=== PATIENT | male | born 1985 | race Caucasian/White ===

== ENCOUNTER 2021-06-25 13:08 | Emergency (ER) | payer BC, OTHER ==
--- NOTE | 2021-06-25 13:55 | EDM.PDOC ---
ED HPI GENERAL MEDICAL PROBLEM - General Chief Complaint: Lower Extremity Injury/Pain Stated Complaint: LEFT LEG IS SORE AND MAYVE SOME INFECTION Time Seen by Provider: 06/25/21 13:40 Source of Information: Reports: Patient, Old Records. Denies: RN History Limitations: Reports: No Limitations - History of Present Illness INITIAL COMMENTS - FREE TEXT/NARRATIVE: 35 yo male here with L proximal/medial thigh puffiness. He feels it is puffy in both legs, but worse on the L. He denies injury. Really doesn't have pain. Has not been seen in the clinic for this. Sx's ongoing for approx 9 days. No SOB. Nothing he does makes it hurt. He looked on a computer and got concerned that maybe he had a blood clot. No swelling to the lower leg. Onset: Unknown/Unsure Duration: Day(s): (~9), Constant Location: Reports: Lower Extremity, Left Quality: Reports: Other (no pain) Improves with: Reports: None Worsens with: Reports: None Context: Reports: Other (See HPI) Associated Symptoms: Reports: No Other Symptoms Treatments [employer]ACH: Reports: Other (see below) (none) - Related Data Allergies Allergy/AdvReac Type Severity Reaction Status Date / Time No Known Allergies Allergy Verified 06/25/21 13:35 Home Meds: Home Meds NK [No Known Home Meds] 06/25/21 [History] Past Medical History - Infectious Disease History Infectious Disease History: Reports: Chicken Pox Social & Family History - Tobacco Use Tobacco Use Status *Q: Never Tobacco User - Caffeine Use Caffeine Use: Reports: Coffee, Soda - Recreational Drug Use Recreational Drug Use: No Review of Systems - Review of Systems Review Of Systems: See Below Constitutional: Reports: No Symptoms Musculoskeletal: Reports: Other (puffiness to the prox/medial L thigh) Skin: Reports: No Symptoms. Denies: Diaphoresis, Bruising, Pruritis, Erythema Neurological: Reports: No Symptoms ED EXAM, GENERAL - Physical Exam Exam: See Below Exam Limited By: No Limitations General Appearance: Alert, WD/WN, No Apparent Distress Respiratory/Chest: No Respiratory Distress, Lungs Clear, Normal Breath Sounds, No Accessory Muscle Use Cardiovascular: Regular Rate, Rhythm, No Edema Extremities: Normal Inspection, Normal Range of Motion, Non-Tender, No Pedal Edema, Other (seems to have some fatty tissue present to both LE's/medial/prox thigh). No: Pedal Edema, Joint Swelling, Leg Pain, Limited Range of Motion, Increased Warmth, Redness Neurological: Alert, Oriented, CN II-XII Intact, Normal Cognition, No Motor/Sensory Deficits Psychiatric: Normal Affect, Normal Mood Skin Exam: Warm, Dry, Intact, Normal Color, No Rash Course - Vital Signs Last Recorded V/S: Last Vital Signs Temp 36.4 C 06/25/21 13:49 Pulse 74 06/25/21 13:49 Resp 15 06/25/21 13:49 BP 150/94 H 06/25/21 13:49 Pulse Ox 97 06/25/21 13:49 - Orders/Labs/Meds Labs: Laboratory Tests 06/25/21 Range/Units 13:58 D-Dimer, Quantitative 232.55 (0.0-500.0) ng/mL Departure - Departure Time of Disposition: 14:45 Disposition: Home, Self-Care 01 Condition: Good Clinical Impression: Swelling of thigh - Discharge Information *PRESCRIPTION DRUG MONITORING PROGRAM REVIEWED*: Not Applicable *COPY OF PRESCRIPTION DRUG MONITORING REPORT IN PATIENT SORAYA: Not Applicable Referrals: PCP,None [Primary Care Provider] - Forms: ED Department Discharge Additional Instructions: F/U with your provider if things worsen. Sepsis Event Note (ED) - Evaluation Sepsis Screening Result: No Definite Risk - Focused Exam Vital Signs: Vital Signs Temp Pulse Resp BP Pulse Ox 06/25/21 13:49 36.4 C 74 15 150/94 H 97 06/25/21 13:43 36.4 C 74 15 150/94 H 97
== END 2021-06-25 14:56 | disposition home or self-care (01) ==
LOC: JP.ED 13:08
DX: M79.89 Other specified soft tissue disorders (principal)
CPT/HCPCS: 36415; 85379; 99283